=== PATIENT | female | born 1975 | race African-American/Black ===

== ENCOUNTER 2018-02-01 10:13 | Outpatient (CLI) | payer BC | END 2018-02-01 10:14 | disposition home or self-care (01) | LOC: BICMAMMO 10:13 | PROVIDERS: ATTEND Obstetrics & Gynecology | DX: N63.21 Unspecified lump in the left breast, upper outer quadrant (principal); N60.02 Solitary cyst of left breast | CPT/HCPCS: 77066; G0279 ==

== ENCOUNTER 2019-07-07 09:34 | Outpatient (CLI) | payer BC ==
--- NOTE | 2019-07-07 12:11 | ULT ---
PELVIC ULTRASOUND: Date: 07/07/19 HISTORY: Pelvic pain and endometriosis. TECHNIQUE: Multiplanar Miller scale and color Doppler images were obtained in a transabdominal and transvaginal pe lvic ultrasound. Spectral analysis with Doppler waveforms to the ovaries performed. FINDINGS: There is a 2.5 cm hypoechoic lesion in the uterus which likely represents a fibroid. The endometrial stripe is normal in thickness measuring 6 mm. The right ovary has been removed. The left ovary is normal in size and appearance and demonstrates no rmal internal flow. No free fluid is seen in the pelvis. IMPRESSION: Uterine fibroid. POS: [facility]
== END 2019-07-07 09:35 | disposition home or self-care (01) ==
LOC: BICULT 09:34
DX: R10.30 Lower abdominal pain, unspecified (principal); D25.9 Leiomyoma of uterus, unspecified
CPT/HCPCS: 76856

== ENCOUNTER 2019-09-29 12:49 | Outpatient (CLI) | payer BC ==
--- NOTE | 2019-09-29 14:58 | MRI ---
MR the pelvis without contrast INDICATION: Lower pelvic pain COMPARISON: Prior pelvic ultrasound dated July 07, 2019 FINDINGS: There are multiple small T2 hypointense lesions within the uterus consistent with the small uterine f ibroids. One of the largest is seen within the posterior uterine body measuring 2.3 x 2.6 cm. The adnexa are not definitely seen. There is a dkof-mt-bwkupdua amount retained stool within the rectum. No free fluid or enlarged lymph nodes are evident. The visualized sacral neural foramina are patent. The visualized bladder is within normal limits. No bone marrow signal abnormality is grossly evident. IMPRESSION: 1. Fibroid uterus. 2. Mild to moderate amount of retained stool within the rectum.
== END 2019-09-29 12:50 | disposition home or self-care (01) ==
LOC: MRI 12:49
PROVIDERS: ATTEND Obstetrics & Gynecology
DX: R10.2 Pelvic and perineal pain (principal); D25.9 Leiomyoma of uterus, unspecified
CPT/HCPCS: 72195

== ENCOUNTER 2020-01-31 13:50 | Outpatient (CLI) | payer BC ==
--- NOTE | 2020-01-31 15:21 | MRI ---
MRI BRAIN WITHOUT CONTRAST: HISTORY: Headache. FINDINGS: No restricted diffusion is seen. No evidence of infarct, hemorrhage, midline shift, or abnormal extr aaxial fluid collection is seen. The ventricular size is normal and the basilar cisterns are patent. No signal abnormalities are seen on the highly sensitive FLAIR images. No blood products are noted on the gradient echo sequences. The visualized paranasal sinuses and mastoid air cells are well aer ated. IMPRESSION: Normal unenhanced MRI of the brain. POS: [id number]
== END 2020-01-31 13:51 | disposition home or self-care (01) ==
LOC: BICMRI 13:50
PROVIDERS: ATTEND Physician Assistant
DX: R51 Headache (principal)
CPT/HCPCS: 70551

== ENCOUNTER 2020-07-23 09:27 | Outpatient (CLI) | payer BC, OTHER ==
[2020-07-23 16:20] LABS: SARS-CoV-2 MS2 Positive; SARS-CoV-2 N Gene Negative; SARS-CoV-2 S Gene Negative; SARS-CoV-2 by NAA Not Detected (NotDetected); SARS-CoV-2 orf1ab Negative
== END 2020-07-23 09:28 | disposition home or self-care (01) ==
LOC: LABBT 09:27
PROVIDERS: ATTEND Internal Medicine
DX: R10.84 Generalized abdominal pain (principal); K52.9 Noninfective gastroenteritis and colitis, unspecified; R19.4 Change in bowel habit; R14.0 Abdominal distension (gaseous); Z20.828 Contact with and (suspected) exposure to other viral communicable diseases
CPT/HCPCS: 87635; U0003

== ENCOUNTER 2020-07-27 10:19 | Outpatient (CLI) | payer BC ==
--- NOTE | 2020-07-27 17:01 | RAD ---
UPPER GI AND SMALL BOWEL SERIES: 07/27/20 HISTORY: Altered bowel function, chronic diarrhea. Abdominal distention symptoms. Generalized abdominal pain. Altered bowel function. Encounter for screening for other viral diseases. FINDINGS: Swallowing was grossly normal. There is unobstructed flow of contrast through the esophagus and into the stomach, duodenum, small bowel loops and colon. No evidence of ulcer, stricture, mass or divertic ulum is seen. The small bowel loops are not abnormally distended, dilated or . On the three hour images, the administered contrast demonstrates flocculation and fragmentation as it gets to the terminal ileum and colon. The terminal ileum thus could not be satisfactorily evaluated. IMPRESSION: No significant abnormalities are seen. POS: OFF
== END 2020-07-27 10:20 | disposition home or self-care (01) ==
LOC: RAD 10:19
PROVIDERS: ATTEND Internal Medicine
DX: K52.9 Noninfective gastroenteritis and colitis, unspecified (principal); R10.84 Generalized abdominal pain; R19.4 Change in bowel habit; R14.0 Abdominal distension (gaseous); Z11.59 Encounter for screening for other viral diseases
CPT/HCPCS: 74246

== ENCOUNTER 2022-09-21 20:33 | Observation (INO) | payer BC ==
[2022-09-21 21:04] LABS: #Eosinphils 0.1 thou/uL (0.0-0.7); #Lymphocytes 1.8 thou/uL (1.20-3.40); #Monocytes 0.4 thou/uL (0.11-0.59); #Neutrophils 2.4 thou/uL (1.40-6.50); %Basophils 0.9 % (0.0-1.0); %Eosinophils 2.1 % (0.0-10.0); %Lymphocytes 37.9 % (21.0-51.0); %Monocytes 8.6 % (0.0-10.0); %Neutrophils 50.4 % (42.0-75.0); Hemoglobin 13.3 g/dL (12.0-16.0); Mean Corpuscular HGB CONC 32.4 g/dL (32.0-36.0); Mean Corpuscular Volume 95.7 fl (78.0-98.0); Mean Platelet Volume 9.3 fL (7.4-10.4); Platelet Count 224 10x3/uL (130-400); RBC Distribution Width 11.9 % (11.5-14.5); Red Blood Cell (RBC) Count 4.28 mill/uL (4.20-5.40); White Blood Cell (WBC) Count 4.8 10x3/uL (4.8-10.8)
[2022-09-21 21:16] LABS: BHCG - Serum Negative (NEGATIVE); INR-International Normal Ratio 0.9; PTT 35.6 sec (22.9-36.1); Pregs Control Background? CLEAR/WHITE (CLR/WHITE); Pregs Control Bar Appear? YES (CONTROL BAR); Prothrombin Time 12.8 sec (12.0-14.7)
[2022-09-21 21:26] LABS: ALT (SGPT) 18 U/L (8-55); AST (SGOT) 19 U/L (5-34); Albumin 4.3 g/dL (3.5-5.0); Alkaline Phosphatase 43 U/L (40-110); Anion Gap 11 mmol/L (10-20); BUN (Urea Nitrogen) 11 mg/dL (7.0-18.7); Bilirubin, Total 0.3 mg/dL (0.2-1.2); Calc. Creatinine Clearance 0 mL/min (70-130); Calcium 9.5 mg/dL (7.8-10.44); Carbon Dioxide 26 mmol/L (22-29); Chloride 105 mmol/L (98-107); Estimated GFR 80; Globulin 3.1 g/dL (2.4-3.5); Glucose 113 mg/dL (70-105); Potassium 3.8 mmol/L (3.5-5.1); Protein, Total 7.4 g/dL (6.0-8.3); Sodium 138 mmol/L (136-145)
[2022-09-21 21:47] LABS: CKMB 1.1 ng/mL (0-6.6)
[2022-09-22 00:10] LABS: Bilirubin Negative (Negative); Blood, Urine Negative (Negative); Clarity Clear (Clear); Glucose, Urine (Dipstick) Normal (Negative); Ketone, Urine Negative (Negative); Leukocyte Negative Leu/uL (Negative); Nitrite Negative (Negative); Protein, Urine (Dipstick) Negative (Neg-Trace); Specific Gravity, Urine 1.003 (1.002-1.036); Urobilinogen Normal mg/dL (Less than 2)
[2022-09-22] MEDS ORDERED: Aspirin Chewable 81 MG TAB ONE (01:00)
[2022-09-22 01:21] LABS: Troponin I 0.092 ng/mL (< 0.028)
[2022-09-22] MEDS ORDERED: Nitroglycerin 0.4 MG TAB (25 Tab Bottle) SL PRN (03:49)
[2022-09-22] MEDS ORDERED: Ondansetron ODT 4 MG TAB PO PRN (04:30)
[2022-09-22] MEDS ORDERED: Ondansetron PF 4 MG/2 ML Vial IVP PRN (04:30)
[2022-09-22] MEDS ORDERED: Sodium Chloride 0.9% 1,000 ML IV SCH (04:30)
[2022-09-22] MEDS ORDERED: Acetaminophen 325 MG TAB PO PRN (04:30)
[2022-09-22 04:41] LABS: Cardiac Risk 2.7 (Less than 4.5)
[2022-09-22 04:45] LABS: Troponin I 0.057 ng/mL (< 0.028)
[2022-09-22] MEDS ORDERED: Enoxaparin Sodium 60 MG/0.6 ML SYRINGE ONE (04:56)
[2022-09-22 06:11] VITALS: BMI 20.1
[2022-09-22] MEDS ORDERED: Enoxaparin Sodium 80 MG/0.8 ML SYRINGE SC SCH (09:00)
[2022-09-22] MEDS ORDERED: Famotidine 20 MG TAB PO SCH (09:00)
[2022-09-22] MEDS ORDERED: ALPRAZolam 0.25 MG TAB PO SCH (11:15)
[2022-09-22] MEDS ORDERED: Regadenoson 0.4 MG/5 ML SYRINGE ONE (13:59)
[2022-09-22] MEDS ORDERED: Meclizine HCl 25 MG TAB PO PRN (16:23)
[2022-09-22] MEDS ORDERED: ALPRAZolam 0.25 MG TAB PO PRN (16:23)
[2022-09-22] MEDS ORDERED: Non-Formulary Item 1 EACH (Budesonide [Pulmicort Flexhaler] 180 MCG Inhaler) INH PRN (16:23)
[2022-09-22 16:27] VITALS: BP 118/80; TEMP 98.6
[2022-09-22] MEDS ORDERED: ZOLPIDEM TARTRATE PO SCH (16:30)
[2022-09-23] MEDS ORDERED: DOXEPIN TP SCH (09:00)
[2022-09-23] MEDS ORDERED: FOLIC ACID PO SCH (09:00)
[2022-09-23] MEDS ORDERED: Montelukast Sodium 10 mg Tablet PO SCH (09:00)
[2022-09-23] MEDS ORDERED: Atenolol 25 MG TAB PO SCH (09:00)
[2022-09-23] MEDS ORDERED: CYANOCOBALAMIN PO SCH (09:00)
[2022-09-23] MEDS ORDERED: Famotidine 20 MG TAB PO SCH (09:00)
[2022-09-23] MEDS ORDERED: [UNRECOGNIZED DRUG - OTHER] PO SCH (09:00)
== END 2022-09-22 16:43 | disposition home or self-care (01) ==
LOC: ERS 20:33 → ERHOLD 09-22 03:11
PROVIDERS: ADMIT Internal Medicine; ATTEND Nurse Practitioner Acute Care
DX: R07.89 Other chest pain (principal); M54.50 Low back pain, unspecified; E78.5 Hyperlipidemia, unspecified; D47.02 Systemic mastocytosis; G90.A Postural orthostatic tachycardia syndrome [POTS]; G90.1 Familial dysautonomia [Riley-Day]; G43.709 Chronic migraine without aura, not intractable, without status migrainosus; Z86.16 Personal history of COVID-19; Z79.899 Other long term (current) drug therapy
CPT/HCPCS: 36415; 71045; 78452; 80053; 80061; 81003; 82553; 84443; 84484; 84703; 85025; 85379; 85610; 85730; 93005; 93017; 96372; A9500; G0378; J1650; J2785; J7050